=== PATIENT | male | born 1985 | race African-American/Black ===

== ENCOUNTER 2020-10-26 11:14 | Outpatient (CLI) | payer OTHER, SELFPAY ==
--- NOTE | ~2020-10-26 | XR_ITS ---
XR lumbar spine 2-3V DATE: 10/26/2020 11:32 INDICATION: Low back pain and bilateral leg pain for 2 weeks. No injury. TECHNIQUE: AP, lateral, coned lateral lumbosacral views COMPARISON: None FINDINGS: No fracture or bone destruction or spondylolisthesis. The included lower thoracic and lumba r pedicles are intact. Lumbar and lumbosacral interspaces are well preserved. The sacroiliac joints a ppear normal. IMPRESSION: No significant abnormality Reviewed, dictated and finalized at location B. [employer] IMPRESSION: No significant abnormality
== END 2020-10-26 11:15 | disposition home or self-care (01) ==
LOC: ANHIMG 11:19
PROVIDERS: PCP Family Medicine; Visit Provider Family Medicine
DX: M54.30 Sciatica, unspecified side (principal)
CPT/HCPCS: 72100